=== PATIENT | female | born 1955 | race Caucasian/White ===

== ENCOUNTER 2018-01-05 10:47 | Emergency (ER) | payer OTHER ==
[~2018-01-05] VITALS: Ht 154.9 cm; Wt 59.0 kg
--- NOTE | 2018-01-05 11:40 | ED GENERAL ADULT ---
History of Present Illness General Chief Complaint: General Adult Stated Complaint: DIZZINESS/SOB Source: patient Exam Limitations: no limitations Vital Signs & Intake/Output Vital Signs & Intake/Output Vital Signs Date Time Temp Pulse Resp B/P B/P Pulse O2 O2 Flow FiO2 Mean Ox Delivery Rate 01/05 1523 97.9 80 12 171/74 94 Room Air 01/05 1411 97.2 82 18 159/96 98 Room Air 01/05 1122 97 Room Air 01/05 1051 96.6 86 18 165/91 96 Room Air Allergies Coded Allergies: Penicillins (UNKNOWN 01/05/18) vancomycin (UNKNOWN 01/05/18) Reconcile Medications Cyanocobalamin (Vitamin B-12) (Cyanocobalamin Injection) 1,000 MCG/ML VIAL 1 ML IM Q30D VITAMIN SUPPORT (Reported) Triage Note: PT STATES WHEN SHE WALKS OR STANDS TO LONG SHE FEELS SOB AND DIZZY. PT STATES THIS BEGAN LAST JAMES, AND SHE FEELS LIKE SHE CAN'T CATCH HER BREATH. PT DENIES CHEST PAIN BUT DOES FEEL LIKE HER HEART IS RACING WITH THE PREVIOUS S/S START. PT DENIES ANY CARDIAC PROBLEMS. Triage Nurses Notes Reviewed? yes HPI: This is a 62-year-old female with history of Crohn's disease, not on immunosuppression, status post multiple bowel resections, seizure disorder, last seizure 5 years ago, not on antiepileptic medication, presenting to the emergency department with an episode of lightheadedness while walking to her car this morning to go to work. Patient works as a nurse. She states that she has been feeling well recently, although noted that she was a little dizzy last night. For this, she drinks a few glasses of water, went to sleep. This morning, while walking the car, she became acutely dizzy, which she describes as a feeling of lightheadedness and near syncope/presyncope. She also describes an episode of shortness of breath and mild palpitations. Upon arrival, she denies any ongoing shortness of breath or palpitations, but does describe some mild lightheadedness with standing and ambulation. She denies any chest pain, headache, vertigo, abdominal pain, nausea/vomiting/diarrhea. She has had no bowel movements. She denies any dysuria or frequency. She is postmenopausal. Upon arrival to the emergency department, she is noted to be mildly hypertensive , which is new for her. Past History Travel History Traveled to [place] past 21 day No Medical History Any Pertinent Medical History? see below for history Neurological: seizure Gastrointestinal: Crohn's disease Influenza Vaccine: 03/30/08 Surgical History Surgical History: SB resection Psychosocial History Who do you live with Spouse Services at Home None What is your primary language Burkin[place] Tobacco Use: Never used ETOH Use: denies use Illicit Drug Use: denies illicit drug use Family History Hx Contributory? No Review of Systems Review of Systems Constitutional: Reports: no symptoms. EENTM: Reports: no symptoms. Respiratory: Reports: see HPI. Cardiovascular: Reports: see HPI, palpitations. Denies: chest pain, edema, orthopena, peripheral edema, syncope. GI: Reports: no symptoms. Genitourinary: Reports: no symptoms. Musculoskeletal: Reports: no symptoms. Skin: Reports: no symptoms. Neurological/Psychological: Reports: see HPI. Hematologic/Endocrine: Reports: no symptoms. Physical Exam Physical Exam General Appearance: well developed/nourished, no apparent distress, alert, comfortable Head: atraumatic, normal appearance Eyes: Bilateral: normal appearance, PERRL, EOMI. Ears, Nose, Throat: normal pharynx, normal ENT inspection Neck: normal inspection, supple, full range of motion Respiratory: normal breath sounds, chest non-tender, no respiratory distress, lungs clear Cardiovascular: regular rate/rhythm, normal peripheral pulses Gastrointestinal: soft, non-tender Rectal: deferred Back: normal inspection, normal range of motion Extremities: normal inspection, normal capillary refill, normal range of motion, no edema Neurologic/Psych: no motor/sensory deficits, awake, alert, oriented x 3, normal gait, normal mood/affect Comments: Well-appearing 62-year-old woman, no acute distress, no murmur, abdominal exam benign with well-healed surgical scars, no calf swelling, normal distal pulses, negative Romberg, normal coordination in all 4 extremities, cranial nerves II through XII intact, no dysdiadochokinesis, normal baseline a tandem gait. Standing reproduces symptoms but does not significantly alter vital signs Core Measures ACS in differential dx? Yes CVA/TIA Diagnosis: No Sepsis Present: No Sepsis Focused Exam Completed? No Progress Differential Diagnoses I considered the following diagnoses in my evaluation of the patient: Dehydration/metabolic derangement, occult infection such as urinary tract infection or pneumonia, viral illness; mild concern for atypical ACS. Low suspicion for pulmonary embolism in this patient given lack of history of blood clots, travel, trauma, calf swelling, recent surgery, history of cancer. It seems that the symptoms preceded the sensation of palpitations, making the diagnosis of arrhythmia somewhat less likely, however will pursue EKG and electrolyte panel. Does not appear to be primary neurologic process given lack of focality or suggestive symptoms. Patient states that this sensation is very different than vertigo and very different from prior seizure prodrome. Plan of Care: Orders Procedure Date/time Status Regular Diet 01/05 D Active TROPONIN LEVEL 01/05 1445 Complete CULTURE,URINE 01/05 1129 Active URINALYSIS 01/05 1129 Complete TROPONIN LEVEL 01/05 1129 Complete COMPREHENSIVE METABOLIC PANEL 01/05 1129 Complete CBC WITHOUT DIFFERENTIAL 01/05 1129 Complete EKG 01/05 105 Active Laboratory Tests 01/05/18 1450: Troponin I < 0.01 01/05/18 1155: Anion Gap 13, Estimated GFR > 60, BUN/Creatinine Ratio 22.9, Glucose 107 H, Calcium 9.5, Total Bilirubin 0.9, AST 49 H, ALT 50, Alkaline Phosphatase 85, Troponin I 0.03, Total Protein 8.3 H, Albumin 4.9, Globulin 3.4, Albumin/ Globulin Ratio 1.4, CBC w Diff NO MAN DIFF REQ, RBC 5.34, MCV 83.6, MCH 27.6, MCHC 33.1, RDW 13.6, MPV 9.2, Gran % 84.0 H, Lymphocytes % 11.8 L, Monocytes % 3.8, Eosinophils % 0.2, Basophils % 0.2, Absolute Granulocytes 6.5, Absolute Lymphocytes 0.9 L, Absolute Monocytes 0.3, Absolute Eosinophils 0, Absolute Basophils 0 01/05/18 1150: Urine Color YEL, Urine Clarity CLEAR, Urine pH 7.0, Ur Specific [place] <= 1.005 , Urine Protein NEG, Urine Ketones NEG, Urine Nitrite NEG, Urine Bilirubin NEG, Urine Urobilinogen 0.2, Ur Leukocyte Esterase NEG, Ur Microscopic EXAM NOT REQUIRED, Urine Hemoglobin NEG, Urine Glucose NEG Microbiology 01/05 115 URINE ROUT: Urine Culture - RECD Plan for labs, troponin 2, EKG, chest film, urinalysis, normal saline bolus, reassessment, potential discharge home with close outpatient follow-up pending diagnostics and clinical course. Troponin negative 2, other labs are reassuring and normal. Patient feels much better following a liter fluid. She is able to walk department that difficulty. She tolerates p.o. She will follow-up with her primary doctor for reassessment and further evaluation. Urinalysis negative. Patient discharged home with return precautions and outpatient follow-up instructions. Initial ED EKG: normal axis, short MN, nonspecific IVCD, no acute ischemic changes. TWI to V2 likely 2/2 placement given morphology. Overall, appears very similar to prior ECG in 2008. Departure Departure Time of Disposition: 1612 Disposition: HOME OR SELF CARE Condition: Stable Clinical Impression Primary Impression: Lightheadedness Referrals: Jose Brown MD (PCP/Family) Additional Instructions: Thank you for coming to [facility] today. Your lab work was normal. We did not rule out every possible dangerous cause of lightheadedness, so you will require follow-up with your primary doctor Departure Forms: Customer Survey General Discharge Information Critical Care Note Critical Care Note Critical Care Time: non-applicable
[2018-01-05] MEDS ORDERED: CYANOCOBAL1000 MCG/2 IM (11:46)
[2018-01-05 12:17] LABS: ABSOLUTE BASOPHIL COUNT 0 /CUMM (0.0-0.2); ABSOLUTE EOSINOPHIL COUNT 0 /CUMM (0.0-0.7); ABSOLUTE GRANULOCYTE CT 6.5 /CUMM (1.4-6.5); ABSOLUTE LYMPH COUNT 0.9 /CUMM (1.2-3.4); ABSOLUTE MONOCYTE COUNT 0.3 /CUMM (0.10-0.60); BASOPHIL % 0.2 % (0.0-2.0); EOSINOPHIL % 0.2 % (0-5); HEMATOCRIT 44.6 % (37-47); MEAN CORPUSCULAR HGB 27.6 PG (27.0-31.0); MEAN CORPUSCULAR HGB CONC 33.1 G/DL (33.0-37.0); MEAN CORPUSCULAR VOLUME 83.6 FL (81.0-99.0); MEAN PLATELET VOLUME 9.2 FL (7.4-10.4); RBC DISTRIBUTION WIDTH 13.6 % (11.5-14.5); RED BLOOD CELL CT 5.34 /CUMM (4.20-5.40)
[2018-01-05 12:46] LABS: WHITE BLOOD CELL COUNT 7.7 /CUMM (4.8-10.8)
--- NOTE | 2018-01-05 13:10 | RADIOLOGY REPORT ---
EXAMINATION: XR CHEST CLINICAL INFORMATION: Concern for pneumonia. COMPARISON: Chest radiograph dated 11/19/2008. TECHNIQUE: 2 views of the chest were obtained. FINDINGS: The heart is normal in size. Both lungs are clear. No pneumonia. No pleural effusion or pneumothorax. Degenerative changes of the thoracic spine. IMPRESSION: No significant change in the appearance of the heart and lungs when compared with chest radiograph dated 11/19/2008. No acute disease.
[2018-01-05 16:25] VITALS: BP 154/90
== END 2018-01-05 16:27 ==
LOC: ERH 10:47
PROVIDERS: Student in an Organized Health Care Education/Training Program
DX: R42 Dizziness and giddiness (principal)
CPT/HCPCS: 71046; 81003; 87086; 93005; 93010; 96360